=== PATIENT | female | born 1955 ===

== ENCOUNTER 2017-01-17 06:34 | Emergency (ER) | payer OTHER ==
[2017-01-17 06:55] VITALS: O2SAT 99
--- NOTE | 2017-01-17 07:36 | C.PDOC ---
History Of Present Illness 61 y/o female pmhx HTN, diabetes, high cholesterol, left BKA presents to the ED with complains of chest pressure and heaviness intermittently since yesterday. Symptoms increase with effort of breathing. Denies SOB, dyspnea, orthopnea, dizziness, nausea, or sweating. Pt denies history of known CAD. Left leg amputation 4 years ago in [place] due to diabetic foot ulcer. Pt also complaining of phantom pain to left leg with pins and needles sensation, same symptoms to right leg. Denies headache, fever, chills, nausea, vomiting or any other complaints. Time Seen by Provider: 01/17/17 07:12 Chief Complaint (Nursing): Chest Pain History Per: Patient History/Exam Limitations: no limitations Onset/Duration Of Symptoms: Hrs Current Symptoms Are (Timing): Still Present Severity: Moderate Quality: Pressure Exacerbating Factors: Deep Breathing Alleviating Factors: None Recent travel outside of the [place]: No Past Medical History Reviewed: Historical Data, Nursing Documentation, Vital Signs Vital Signs: Last Vital Signs Temp 98.0 F 01/17/17 08:55 Pulse 66 01/17/17 08:55 Resp 16 01/17/17 08:55 BP 158/80 H 01/17/17 08:55 Pulse Ox 99 01/17/17 08:55 - Medical History PMH: Diabetes (Type 1), HTN, Hypercholesterolemia Family History: States: Unknown Family Hx - Social History Hx Tobacco Use: No Hx Alcohol Use: No Hx Substance Use: No - Immunization History Hx Tetanus Toxoid Vaccination: No Hx Influenza Vaccination: No (2014) Hx Pneumococcal Vaccination: No Review Of Systems Except As Marked, All Systems Reviewed And Found Negative. Constitutional: Negative for: Fever, Chills, Sweats Cardiovascular: Positive for: Chest Pain (pressure, heaviness) Respiratory: Negative for: Cough, Shortness of Breath Gastrointestinal: Negative for: Nausea, Vomiting Musculoskeletal: Positive for: Other (pins and needles sensation to right leg; phantom pain and pins needles sensation left leg) Neurological: Negative for: Headache, Dizziness Physical Exam - Physical Exam Appears: Non-toxic, No Acute Distress Skin: Warm, Dry, No Rash Head: Atraumatic, Normacephalic Neck: Normal, Normal ROM, Supple Chest: Symmetrical, No Tenderness Cardiovascular: Rhythm Regular, No Murmur Respiratory: Normal Breath Sounds, No Accessory Muscle Use, No Rales, No Rhonchi , No Wheezing Gastrointestinal/Abdominal: Soft, No Tenderness, Other (obese) Extremity: Other (left BKA) Pulses: Right Dorsalis Pedis: Normal Neurological/Psych: Oriented x3, Normal Speech, Normal Motor, Normal Sensation ED Course And Treatment - Laboratory Results Result Diagrams: 01/17/17 07:40 01/17/17 07:40 ECG: Interpreted By Me, Viewed By Me ECG Rhythm: Sinus Rhythm Interpretation Of ECG: No ST elevations or depressions Rate From EC (BPM) O2 Sat by Pulse Oximetry: 99 (room air) Pulse Ox Interpretation: Normal Medical Decision Making Medical Decision Making: Plan is to evaluate patient for ACS. Ordered EKG, CXR, labs, IV fluids Disposition - Disposition Referrals: Glo Dacosta MD [Primary Care Provider] - Disposition: HOME/ ROUTINE Disposition Time: 08:57 Condition: STABLE Additional Instructions: Siga con kline doctor Y con lakshmi consultas. Instructions: Chest Pain (DC) Forms: Gen Discharge Inst Amharic - POA Present On Arrival: None - Clinical Impression Clinical Impression: Chest discomfort - Scribe Statement The provider has reviewed the documentation as recorded by the Scribe Sean Chapin Provider Attestation: All medical record entries made by the Scribe were at my direction and personally dictated by me. I have reviewed the chart and agree that the record accurately reflects my personal performance of the history, physical exam, medical decision making, and the department course for this patient. I have also personally directed, reviewed, and agree with the discharge instructions and disposition.
[2017-01-17 07:49] LABS: BASO # 0.1 K/uL (0.0-0.2); BASO % 0.9 % (0.0-2.0); EOS # 0.3 K/uL (0.0-0.7); EOS % 3.4 % (0.0-4.0); HEMATOCRIT 35.1 % (34.0-47.0); LYMPH # 2.1 K/uL (1.0-4.3); LYMPH % 20.8 % (20.0-40.0); MEAN CELL VOLUME 78.2 fL (81.0-99.0); MEAN PLATELET VOLUME 7.7 fL (7.2-11.7); MONO # 1.2 K/uL (0.0-0.8); RED CELL DISTRIBUTION WIDTH 16.2 % (11.5-14.5); WHITE BLOOD COUNT 10.2 K/uL (4.8-10.8)
[2017-01-17 07:56] LABS: CHLORIDE 100 mmol/L (98-107)
[2017-01-17 07:57] LABS: POTASSIUM 4.8 mmol/L (3.6-5.2); SODIUM 138 mmol/L (132-148)
[2017-01-17 07:59] LABS: BILIRUBIN,TOTAL 0.7 mg/dL (0.2-1.3); GFR AFRICAN-AMERICAN > 60
[2017-01-17 08:00] LABS: ALKALINE PHOSPHATASE 72 U/L (38-126); ALT/SGPT 15 U/L (9-52); AST/SGOT 36 U/L (14-36); BLOOD UREA NITROGEN 16 mg/dL (7-17); CALCIUM 8.9 mg/dl (8.6-10.4); CARBON DIOXIDE 31 mmol/L (22-30); GLUCOSE,RANDOM 94 mg/dL (65-105); TOTAL PROTEIN 7.6 g/dL (6.3-8.3)
[2017-01-17 08:55] VITALS: BP 158/80; PULSE 66; RESP 16; TEMP 98
--- NOTE | 2017-01-17 08:58 | RAD ---
PROCEDURE: CHEST RADIOGRAPH, 1 VIEW HISTORY: chest pain COMPARISON: 03/07/2014 FINDINGS: LUNGS: Mild venous congestion. PLEURA: No pneumothorax or pleural fluid seen. CARDIOVASCULAR: Cardiomegaly. OSSEOUS STRUCTURES: No significant abnormalities. VISUALIZED UPPER ABDOMEN: Normal. OTHER FINDINGS: None. IMPRESSION: Mild venous congestion.
--- NOTE | 2017-01-20 13:05 | CARD ---
APPROVED REPORT EKG Measurement Heart [id number] DC [id number] <Conclusion> Normal sinus rhythm Normal ECG
== END 2017-01-17 09:10 | disposition home or self-care (01) ==
LOC: C.ER 06:34 → SUPCPDRO 06:34 → C.ER 09:10
DX: R07.89 Other chest pain (principal)